=== PATIENT | male | born 1955 | race Caucasian/White ===

== ENCOUNTER 2025-03-26 14:04 | Emergency (ER) | payer MEDICARE, SELFPAY ==
[2025-03-26 14:06] VITALS: BP 164/92; PULSE 66; RESP 16; TEMP 36.6; O2SAT 96
--- NOTE | 2025-03-26 14:15 | DI.RAD_ITS ---
Exam(s) XR HAND LT COMPLETE EXAM: XR HAND LT COMPLETE CLINICAL HISTORY: Middle finger pain swelling. TECHNIQUE: 2D digital imaging was performed. Three views. COMPARISON: No exams were available for comparison FINDINGS: BONES: No acute fracture is present. No bony destructive lesion is seen. JOINTS: No dislocation present. There are degenerative changes of the interphalangeal joints of the fingers and thumb. SOFT TISSUE: Nor swelling of the middle finger. There is some overlying gauze. No foreign body. IMPRESSION: Unremarkable soft tissue swelling of the middle finger. Degenerative changes of the interphalangeal joints. DATA REPOSITORY: RADIATION DOSE DELIVERED:
--- NOTE | 2025-03-26 14:17 | W.ED.GENAD ---
Discharge Plan Disposition Patient Disposition: Home Condition: Stable Discharge Details Clinical Impression: Closed fracture of distal phalanx of middle finger Primary Care Provider: Chevy Medina ED Provider: Ruma Huber Home Meds and New Rx's Prescriptions: No Action No Known Home Meds Discharge Instructions Instructions: Finger Fracture ED Additional Instructions: There is a small avulsion fracture of the bone of your distal finger. Please wear the splint except for bathing. Rest, Ice, elevation. Please take Tylenol or Ibuprofen with food every 4-6 hours as needed for pain and swelling. Follow up with orthopedics in 1-2 weeks. Referrals: Rocco Lr MD [ [facility], [facility]] - 2 weeks Referral Note: Left distal phalange fracture middle finger HPI General Mode of arrival: ambulatory. Date/Time Provider Initiated Documentation: 03/26/25 14:11. Limitations to Documentation: no limitations. Information obtained by: patient, RN notes reviewed and old records reviewed. HPI Narrative: 69 year old male presents to the ER with a cc of left middle finger injury that occurred just [employer]. Patient was using a drill. It was worsening her outer. He is complaining of some pain and swelling noted to the distal middle finger. Unsure of last TDAP injection. Denies any other associated symptoms or concerns. Did not take any medications [employer]. Related Data Home Medications ?Medication ?Instructions ?Recorded ?Confirmed Unknown [No Known Home Meds] 03/26/25 03/26/25 Allergies Allergy/AdvReac Type Severity Reaction Status Date / Time No Known Allergies Allergy Unverified 03/26/25 14:09 General Stated Complaint: Orthopedic MELISSA: 3 Review of Systems Musculoskeletal Musculoskeletal: Reports as per HPI Exam Extrem Left upper extremity: hand Details: abnormal to inspection Details: joint swelling and tenderness Location: of the 3rd digit Location: at the distal phalanx and involving the fingernail Hand/finger images:  1. Swelling, tenderness Course Vital Signs Vital signs: Vital Signs Temperature 36.6 C 03/26/25 14:06 Pulse 66 03/26/25 14:06 Respiratory Rate 16 03/26/25 14:06 Blood Pressure 164/92 H 03/26/25 14:06 Pulse Oximetry 96 03/26/25 14:06 Temperature 36.6 C 03/26/25 14:06 Temperature Source Tympanic 03/26/25 14:06 Pulse 66 03/26/25 14:06 Respiratory Rate 16 03/26/25 14:06 Blood Pressure 164/92 H 03/26/25 14:06 Blood Pressure Position Sitting 03/26/25 14:06 Pulse Oximetry 96 03/26/25 14:06 Oxygen Delivery Method Room Air 03/26/25 14:06 Oxygen Flow Rate 0 03/26/25 14:06 Medical Decision Making 69 year old male presents to the ER with a cc of left middle finger injury that occurred just [employer]. Patient was using a drill. It was worsening her outer. He is complaining of some pain and swelling noted to the distal middle finger. Unsure of last TDAP injection. Denies any other associated symptoms or concerns. Did not take any medications [employer]. XR left hand ordered, TDAP booster, wound care and ice pack, 1 gram Tylenol. Question small avulsion fracture noted to the distal phalange. Placed in a splint and instructed on home care. This text was generated using [employer] dictation system, please disregard any oddities of phrase or misspellings. PFSH All Active Problems (Updated 03/26/25 @ 15:01 by Ruma Huber NP) Closed fracture of distal phalanx of middle finger (Acute) Social History Smoking risk assessment performed?: No
[2025-03-26] MEDS: Acetaminophen 500 MG TAB 1000 MG PO (14:28)
== END 2025-03-26 15:17 | disposition home or self-care (01) ==
PROVIDERS: Emergency Provider Registered Nurse Emergency; PCP Family Medicine
DX: S62.633A Displaced fracture of distal phalanx of left middle finger, initial encounter for closed fracture (principal); W29.8XXA Contact with other powered hand tools and household machinery, initial encounter
CPT/HCPCS: 99283 ×2; 29130; 73130

== ENCOUNTER → 2025-04-07 09:48 | Outpatient (BNVA) | payer MEDICARE, SELFPAY | PROVIDERS: PCP Family Medicine; Referring Provider Family Medicine; Visit Provider Student in an Organized Health Care Education/Training Program | DX: M20.012 Mallet finger of left finger(s) (principal) | CPT/HCPCS: 99213 ==